=== PATIENT | female | born 1980 | race Hispanic/Latino ===

== ENCOUNTER 2017-07-12 19:56 | Emergency (ER) | payer OTHER ==
[2017-07-12 20:24] VITALS: BP 104/70; PULSE 61; RESP 18; TEMP 98; O2SAT 98
--- NOTE | 2017-07-12 21:04 | C.PDOC ---
History Of Present Illness 37 y/o female presents to the ER c/o right foot pain after she mechanically tripped and fell outside 30 min prior. Pain is with ambulation. Patient denies change in sensation, head trauma, LOC, or any other complaints. Time Seen by Provider: 07/12/17 20:31 Chief Complaint (Nursing): Lower Extremity Problem/Injury History Per: Patient History/Exam Limitations: no limitations Onset/Duration Of Symptoms: Mins (30) Current Symptoms Are (Timing): Still Present Severity: Mild Recent travel outside of the [place]: No Additional History Per: Patient - Ankle/Foot Description Of Injury: Fell Past Medical History Reviewed: Historical Data, Nursing Documentation, Vital Signs Vital Signs: Last Vital Signs Temp 98 F 07/12/17 20:22 Pulse 61 07/12/17 20:22 Resp 18 07/12/17 20:22 BP 104/70 07/12/17 20:22 Pulse Ox 98 07/12/17 21:29 Family History: States: Unknown Family Hx - Social History Hx Alcohol Use: No Hx Substance Use: No Review Of Systems Except As Marked, All Systems Reviewed And Found Negative. Constitutional: Negative for: Other (Head trauma) Musculoskeletal: Positive for: Foot Pain (Right foot ) Neurological: Negative for: Numbness (Change in sensation), Other (LOC) Physical Exam - Physical Exam Appears: Well, Non-toxic, No Acute Distress Skin: Warm, Dry Head: Atraumatic, Normacephalic Eye(s): bilateral: Normal Inspection, EOMI Nose: Normal Oral Mucosa: Moist Chest: Symmetrical Respiratory: No Accessory Muscle Use Extremity: Normal ROM, Tenderness (Tenderness and swelling to the proximal 5th metatarsal), Capillary Refill (<2secs), Swelling, Other (Superficial abrasion to the right 5th MTP ) Extremity: Bilateral: Normal ROM Pulses: Left Dorsalis Pedis: Normal, Right Dorsalis Pedis: Normal Neurological/Psych: Oriented x3, Normal Speech, Normal Cognition, Normal Motor, Normal Sensation, Other (No focal deficit) Gait: Steady (Pain with ambulation) ED Course And Treatment O2 Sat by Pulse Oximetry: 98 (RA) Pulse Ox Interpretation: Normal - Other Rad Foot XR X-Ray: Interpreted by Me, Viewed By Me Interpretation: (+) lizzeth fx Progress Note: He dressing and cast shoe applied by critical systems technician and crutches given to patient. Patient was instructed to R.I.C.E. and to follow up with ortho for futher evaluation. Disposition - Disposition Referrals: Joaquim Samaniego III, MD [Staff Provider] - Disposition: HOME/ ROUTINE Disposition Time: 21:24 Condition: STABLE Additional Instructions: Rest, ice and elevate the area. Follow up with bone doctor in 1-2 days. Prescriptions: Naproxen [Naprosyn] 1 tab PO BID PRN #20 tab PRN Reason: Pain Instructions: Foot Fracture in Adults (ED) Forms: [employer] (Spanish) - Clinical Impression Clinical Impression: Foot fracture - Scribe Statement The provider has reviewed the documentation as recorded by the Scribe Rachel feliciano All medical record entries made by the Scribe were at my direction and personally dictated by me. I have reviewed the chart and agree that the record accurately reflects my personal performance of the history, physical exam, medical decision making, and the department course for this patient. I have also personally directed, reviewed, and agree with the discharge instructions and disposition.
--- NOTE | 2017-07-13 09:19 | RAD ---
PROCEDURE: Right Foot Radiographs. HISTORY: R/O FX COMPARISON: None available. FINDINGS: BONES: Nondisplaced horizontal fracture of the base of the 5th metatarsal. Remainder the visualized osseous structures appear intact without acute displaced fracture appreciated. JOINTS: No dislocation. SOFT TISSUES: Soft tissue swelling. No evidence of radiopaque foreign body. OTHER FINDINGS: None. IMPRESSION: Nondisplaced horizontal fracture at the base of the 5th metatarsal. Soft tissue swelling. Study has been marked for PA review.
== END 2017-07-12 21:35 | disposition home or self-care (01) ==
LOC: C.ER 19:56
DX: S92.354B Nondisplaced fracture of fifth metatarsal bone, right foot, initial encounter for open fracture (principal); W01.0XXA Fall on same level from slipping, tripping and stumbling without subsequent striking against object, initial encounter